=== PATIENT | male | born 1965 | race Caucasian/White ===

== ENCOUNTER 2022-01-12 22:22 | Outpatient (REF) | payer BC, SELFPAY ==
[2022-01-12 22:29] LABS: ALT 57 U/L (16-63); AST 28 U/L (15-37); Albumin 4.3 g/dL (3.4-5.0); Alkaline Phosphatase 78 U/L (46-116); Anion Gap 8.3 mmol/L (3-11); BUN 12 mg/dL (7-18); Bilirubin, Total 0.8 mg/dL (0.2-1.0); CO2 28.7 mmol/L (21.0-32.0); Calcium 9.4 mg/dL (8.5-10.1); Calculated LDL 142 mg/dL (<100); Chloride 103 mmol/L (98-107); Cholesterol 227 mg/dL (<200); Glucose 86 mg/dL (74-106); HDL Cholesterol 57 mg/dL (40-60); Potassium 4.9 mmol/L (3.5-5.1); Sodium 140 mmol/L (136-145); Total Protein 7.6 g/dL (6.4-8.2); Triglyceride 144 mg/dL (<150)
== END 2022-01-12 22:23 | disposition home or self-care (01) ==
LOC: LBN 22:22
PROVIDERS: PCP Family Medicine; Visit Provider Family Medicine
DX: I10 Essential (primary) hypertension (principal); M54.32 Sciatica, left side; Z11.59 Encounter for screening for other viral diseases; Z12.5 Encounter for screening for malignant neoplasm of prostate; Z13.6 Encounter for screening for cardiovascular disorders
CPT/HCPCS: 80053; 80061; 84153

== ENCOUNTER 2022-03-22 00:47 | Outpatient (CLI) | payer BC, SELFPAY ==
--- NOTE | 2022-03-22 07:00 | DI.MRI_ITS ---
Exam(s) MR LUMBAR SPINE WO EXAM: MR LUMBAR SPINE WO CLINICAL HISTORY: severe recurrent sciatica on left X 4 months,m54.32. TECHNIQUE: Multiplanar multisequence MRI of the Lumbar spine was performed. COMPARISON: No exams were available for comparison FINDINGS: There are no plain films the lumbar spine available at the time of this MRI interpretation. Therefor e 5 lumbar vertebrae are presumed. Conus medullaris is at normal level. There is no evidence of conus mass nor subjacent clumping of in trathecal nerve roots to suggest arachnoiditis. The distal thecal sac appears unremarkable.There is no evidence of Tarlov intrasacral cysts nor other significant findings within the sacral canal Bones:There are no fractures nor ominous osseous lesions in the lumbar vertebral bodies and visualize d sacrum. With respect to the individual levels... T12-L1: Unremarkable L1-2: Normal disc height and signal. No disc herniation nor central canal stenosis.No foraminal steno sis L2-3: Normal disc height. Symmetrical mild annular bulging but no dominant disc herniation. Central canal dimensions are lower normal.No foraminal stenosis.No facet arthropathy. L3-4: Normal disc height. Symmetrical annular bulging. Mild central spinal canal stenosis. No dist inct focal disc herniation.No foraminal stenosis.No facet arthropathy. L4-5: Minimal decreased disc height. Mild Modic type 1 sub endplate marrow edema changes in the post erior aspect of lower L4. There is broad annular bulging with moderate-severe central spinal canal s tenosis.. No significant foraminal stenosis. There are mild degenerative changes in the facet joint and moderate degenerative changes the left facet joint. L5-S1: Normal height and signal. Appears sacralized no disc herniation. No central canal stenosis. No foraminal stenosis. No facet arthropathy. Soft tissues: paraspinal soft tissues appear unremarkable. IMPRESSION: 1. Findings as discussed individually above. Most significant finding is moderate-severe central spi nal canal stenosis at L4-5 level, this related to short AP dimensions of the pedicles, relatively sym metrical annular bulging and some degenerative change in both facet joints. No obvious listhesis at this level. 2. L5 segment is probably partially sacralized. This puts additional stress on the L4-5 level. DATA REPOSITORY:
== END 2022-03-22 01:07 ==
PROVIDERS: PCP Family Medicine; Visit Provider Family Medicine
DX: M54.32 Sciatica, left side (principal); M48.061 Spinal stenosis, lumbar region without neurogenic claudication
CPT/HCPCS: 72148

== ENCOUNTER 2023-01-10 08:07 | Day surgery (SDC) | payer BC, SELFPAY ==
--- NOTE | 2023-01-09 21:32 | HPE_ITS ---
Assessment and Plan Assessment and plan (1) Screening for colon cancer: Status: Acute Assessment and plan: 57yo male with intermittent rectal bleeding and abdominal discomfort. He has not had previous colorectal cancer screening. Will proceed to colonoscopy.screening colonoscopy. Complications include but are not limited to bleeding, pain, perforation, missed small lesion/polyp, sore throat, aspiration and adverse reaction to the medications. Questions were answered to their satisfaction and they wished to proceed. History of Present Illness History of Present Illness Chief Complaint: Screening for colorectal cancer; Abdominal discomfort Narrative: This is a 57yo male who presents for his first colorectal cancer screening.He denies a family history of colon cancer. He denies any changes in bowel habits including? black tarry stools, diarrhea or constipation.? He states he believes he have's hemorrhoids because he has noted some intermittent bleeding after bowel movements, when he wipes.? Also of note he describes having occasional abdominal pain that is achy in nature.? He states this most commonly is bothersome after sitting for long periods of time.? This does not bother him when he is physically active.?He denies nausea/vomiting, or periods of diarhhea or constipation. He denies noting any correlation with things that he is eating.? He states that this has been a chronic issue for him, greater than 10 years.? He does smoke 1ppd. PFSH All Active Problems Sciatica of left side (Acute) Personal history of nicotine dependence (Acute) 12/2021-1 ppd, about 35 pk yr Blind left eye (Acute) remote accident, glass eye Hyperlipidemia (Acute) Spinal stenosis at L4-L5 level (Acute) 03/2022- MR Abdominal discomfort (Acute) Screening for colon cancer (Acute) Surgical History (Updated 01/10/23 @ 08:46 by Irma Loyd) Hx of eye surgery 20+ years ago; accident resulted in blindness/prosthetic Family History (Updated 12/04/21 @ 11:16 by Ayse Rivera) Mother , 80 No problems noted. Father , 62 No problems noted. Social History (Updated 07/19/22 @ 12:12 by Keyonna Alcala) Smoking/Tobacco Use Status: Current every day Tobacco Type: cigarettes Tobacco: How many years used: 35 Quit status: considering quitting Second Hand Exposure: Yes Smoking risk assessment performed?: Yes Alcohol Intake: former Drug use: Daily Substance use type: marijuana Caregiver/Support person: No Household members: significant other Housing: house Communication Needs: None Do you need help understanding health information?: Often Pets and animals: Yes Pets and animals: cat(s) Sexually active: Yes Do you think of yourself as: straight/heterosexual Current gender identity: male What is your relationship status?: living with partner How often do you talk on the phone with friends or family?: once per week How often do you get together with friends or relatives?: once per week How often do you attend confucianist or mosque services?: decline to answer Do you belong to any clubs or organized social groups?: no Panel score (0-1 are the most socially isolated patients): 1 What type of physical activity do you participate in: none Melissa/Anabaptist: No preference Special melissa needs: No Seatbelt use: sometimes Helmet use: No Drive intox or ride w/intox local combination truck driver: No Do you feel safe at home: Yes Do you feel safe in your relationship?: Yes Meds Allergies and Home Medications Allergies Allergy/AdvReac Type Severity Reaction Status Date / Time No Known Allergies Allergy Verified 01/10/23 08:46 Home Medications Medication Instructions Recorded Confirmed Type gabapentin 300 mg capsule 300 mg PO PRN PRN 01/10/23 01/10/23 History Exam Const General: cooperative, healthy appearing, comfortable and no acute distress Nutritional Appearance: average body habitus Orientation: alert, awake and oriented x3 Eyes Other: left glass eye Resp Effort & Inspection: normal respiratory effort, able to speak in complete sentences, no grunting and not labored Auscultation: diminished lung sounds Cardio Rate: tachycardic Rhythm: regular rhythm Heart Sounds: S1 normal and S2 normal GI Palpation: soft, not firm, no guarding, not rigid and nontender Psych Appearance: grossly normal Mental Status: mental status grossly normal Thought Process: normal Thought Content: normal
--- NOTE | 2023-01-09 21:37 | W.COLOREPORT ---
Date of service: 01/10/23 Time of Service: 11:37 Colonoscopy Report Date of procedure: 01/10/23 Pre-op diagnosis general: Rectal bleeding; Abdominal discomfort; Colorectal CA screening Post-op diagnosis procedure note: other (Enlarged prostate; prolapsing internal hemorrhoids; colorectal polyps) Procedure: 1. Colonoscopy 2. Polypectomy Surgeon: Iftikhar Perkins Anesthesia Type: MAC Estimated blood loss (mL): 5 Pathology: other (1. polyps @80cm (x2); 2. polyp @ 55cm 3. polyp @ 35cm) Complications: None Disposition: same day Indications: Screening for colorectal cancer; h/o intermittent rectal bleeding; abdominal discomfort Prep: Miralax/Dulcolax Retraction Time: >15 min Findings: enlarged, smooth contoured prostate; Prolapsing internal hemorrhoids; polyps x2 @ 80cm; polyp @ 55cm; polyp @ 35cm Procedure Description: After informed consent was obtained, the patient was taken to the procedure room and placed in a left decubitus position. Monitors were applied and a time out was done. The patient's name, date of , procedure, allergies to medications, and metal in their body were reviewed. The patient was then sedated. Once sedated and comfortable, a digital rectal exam was done. External exam demonstreated prolapsing internal hemorrhoids. Internal exam revealed normal sphincter tone, and an enlarged, smooth prostate, and no gross blood. The colonoscope was then introduced and advanced to the cecum under direct visualization with mild difficulty. The ileocecal valve and appendiceal orifice were visualized. The prep was adequate.?The scope was then slowly withdrawn over 15 minutes in a circumferential manner to the rectum. In doing so, polyps were encountered.? Two polyps at 80cm were taken by cold froceps. One polyp @ 55cm was taken by cold forceps. One polyp @ 35cm was taken by cold snare. There? was no diverticulosis noted. The mucosa is pink and healthy.? In the rectum, the scope was retroflexed, and moderate internal hemorrhoids were noted.? The scope was straightened and withdrawn from the anus. The patient tolerated the procedure well, and there were no immediate complications.? The patient was taken to the Day Surgery Unit recovery?area in good condition. Follow up: await pathology; 3-5 years
--- NOTE | 2023-01-09 21:40 | W.PM.DSUDISC ---
Date of service: 01/10/23 Time of Service: 11:44 Discharge Plan Disposition Patient Disposition: Home Condition: Stable Discharge Details Reason For Visit: Colonoscopy Attending Provider: Iftikhar Perkins Primary Care Provider: Nicholas Goldsmith Home Meds and New Rx's Prescriptions: No Action gabapentin 300 mg capsule 300 mg PO PRN PRN Patient Comments: 01/10/23 Only takes for sciatica Discharge Instructions Instructions: Colonoscopy (DC), Hemorrhoids (DC), Colorectal Polyps (DC), Enlarged Prostate (BPH) (DC), High Fiber Diet (DC) Activity:: Activity as Tolerated Diet:: As Tolerated DS: Diagnosis Discharge Diagnosis (1) Colorectal polyps: Status: Acute Asessment and Plan: Polyps were found on colonoscopy today. --await pathology report --repeat in 3-5 years, based on pathology (2) Hemorrhoids: Status: Acute Asessment and Plan: Prolapsing internal hemorrhoids seen on exam --high fiber diet --stool softeners --increase water intake --see attached information (3) Enlarged prostate on rectal examination: Status: Acute Asessment and Plan: Enlarged prostate noted on digital rectal exam --follow-up with PMD
[2023-01-10 08:15] VITALS: BP 121/87; PULSE 110; RESP 18; TEMP 36.4; O2SAT 99
[2023-01-10] MEDS: Lactated Ringers 1,000 ML 80 ML IV (08:50)
[2023-01-10 10:15] VITALS: BMI 22.1
--- NOTE | 2023-01-10 10:15 | W.ANESPRE ---
General Info Date of Service Date Performed: 01/10/23 Height: 5 ft 7 in Weight: 64.2 kg Body Mass Index (BMI): 22.1 Surgical Procedure: Operation Date: 01/10/23 09:35 Proposed Procedure Side Surgeon p Stas Perkins MD Meds Allergies and Home Medications Allergies Allergy/AdvReac Type Severity Reaction Status Date / Time No Known Allergies Allergy Verified 01/10/23 08:46 Home Medication Medication Instructions Recorded gabapentin 300 mg capsule 300 mg PO PRN PRN 01/10/23 Current Visit Medications: Current Medications Generic Name Dose Route Start Last Admin Trade Name Freq PRN Reason Stop Dose Admin Ringer's Solution 1,000 mls @ 80 mls/hr 01/10/23 06:00 01/10/23 08:50 IV 01/10/23 23:59 80 mls/hr INFUSION ANDREAS Administration IV Miscellaneous Supplies 1 each 01/10/23 06:00 Iv Access IV 01/10/23 23:59 DIRECTED ANDREAS Sodium Chloride 0 ml 01/10/23 06:00 Normal Saline Flush 10 Ml Syr IV 01/10/23 23:59 PRN PRN Sodium Chloride 0 ml 01/10/23 06:00 Normal Saline 10 Ml Vial IJ 01/10/23 23:59 DIRECTED PRN Sterile Water 0 ml 01/10/23 06:00 Water,Injection,Sterile 10 Ml Vial IJ 01/10/23 23:59 DIRECTED PRN PFSH Active Problems Active Problems: Problem Status Onset Code Sciatica of left side M54.32 Personal history of nicotine dependence Z87.891 Blind left eye H54.40 Hyperlipidemia E78.5 Spinal stenosis at L4-L5 level M48.061 Abdominal discomfort R10.9 Screening for colon cancer Z12.11 Medical History Medical History Comments:: Mariosminuna daily; last night Surgical History Surgical History (Updated 01/10/23 @ 08:46 by Irma Loyd) Hx of eye surgery 20+ years ago; accident resulted in blindness/prosthetic Tobacco Smoking/Tobacco Use Status: Current every day Tobacco Type: cigarettes Passive smoking exposure: Yes Second hand exposure: Yes Alcohol Alcohol Intake: former Substance Use Substance use: Daily Substance use type: marijuana Vital Signs and Lab Results Vital Signs Most Recent Vital Signs in EMR: Most Recent Vital Signs Temp Pulse Resp BP Pulse Ox 36.4 C L 110 H 18 121/87 99 01/10/23 08:15 01/10/23 08:15 01/10/23 08:15 01/10/23 08:15 01/10/23 08:15 Lab Results Blood Type / Crossmatch: No Data to Display Complete Blood Count: No Data to Display Complete Metabolic Panel: No Data to Display Liver Function Panel: No Data to Display Coagulation Panel: No Data to Display Cardiac Panel: No Data to Display Arterial Blood Gas: No Data to Display Venous Blood Gas: No Data to Display Pancreas Panel: No Data to Display Thyroid Panel: No Data to Display Infectious Disease: No Data to Display Blood Cultures: No Data to Display Toxicology Panel: No Data to Display Anesthesia Assessment and Plan Anesthesia History Personal History: No History of Anesthesia Complications Family History: No Family History of Anesthesia Complications Exercise Tolerance Exercise Tolerance: Metabolic Equivalents>4 Pertinent Negatives Pertinent Negatives: No Symptoms of GERD, No Major Cardiovascular Symptoms or Complaints and No Major Pulmonary Symptoms or Complaints Cardiac & Pulmonary Exam Cardiac Exam: Normal S1/S2 Heart Sounds Pulmonary Exam: Clear Bilateral Breath Sounds Implantable Cardiac Device Does patient have a Pacemaker or an ICD?: No Airway Exam Known Difficult Airway: No Mallampati Class: 1 Mouth Opening: Narrow (< 3cm) Thyromental Distance: Greater than 3 cm Neck Range of Motion: Full ROM Neck Circumference: Normal Teeth Condition: Removable Dentures/Plates Upper and Removable Dentures/Plates Lower ASA Classification ASA Score: ASA 2 Emergency Case?: No NPO Status NPO Status: NPO Clears >2 hours, Solids >8 hours Anesthesia Plan Resuscitation Status: Full Code Anesthesia Technique: General Anesthesia Airway Planned: Natural Airway Monitors Used: Standard Monitors
--- NOTE | 2023-01-10 10:54 | BOWEL_PTH ---
PATIENT: Wayne Garcia LOC: [facility] U#:[id number] AGE/SX: 57/M ROOM: RE01/10/[address]: Iftikhar Perkins : 1965 BED: DIS: 01/10/2023 SPEC #: [id number] RECD: 01/10/23 12:38 STATUS: SHARA REQ #: [id number] SOLA: 01/10/23 10:[address]: Iftikhar Perkins DEPT: Surgical Specimen RECD BY: Camilla Melchor ENTERED: 01/10/23 12:39 SP TYPE: Bowel OTHR DR: Nicholas Goldsmith, DISPOSAL PLANT OPERATOR Tissues: 1 - BIOPSY BOWEL 2 - BIOPSY BOWEL 3 - BIOPSY BOWEL Procedures: GROSS AND MICRO LEVEL 4 Comments: [id number]
[2023-01-10 11:26] VITALS: BP 117/87; PULSE 78; RESP 16; TEMP 36.6; O2SAT 98
[2023-01-10 11:50] VITALS: BP 124/90; PULSE 81; RESP 16; TEMP 36.6; O2SAT 99
--- NOTE | 2023-01-10 12:32 | W.ANESPOSTOP ---
Postoperative Evaluation Date, Time and Location Date Performed: 01/10/23 Time Performed: 12:32 Patient Location: Day Surgery Unit Vital Signs Most Recent Imported Vital Signs: Most Recent Vital Signs Temp Pulse Resp BP Pulse Ox 36.6 C 81 16 124/90 99 01/10/23 11:50 01/10/23 11:50 01/10/23 11:50 01/10/23 11:50 01/10/23 11:50 Pain Score Most Recent Pain Score: Most Recent Pain Score Pain Level 0 01/10/23 11:50 Assessment Mental Status: Awake (Alert & Oriented to Patient Baseline) Airway and Respiratory Function: Patent airway with normal (patient baseline) respiratory exam Cardiovascular Function: Hemodynamically Stable Hydration Status: Adequately Hydrated Nausea & Vomiting: No Nausea or Vomiting Pain: Pt. Denies Any Pain Peripheral Nerve Block: Patient did not receive a nerve block
== END 2023-01-10 12:15 | disposition home or self-care (01) ==
PROVIDERS: PCP Nurse Practitioner Family; Visit Provider Surgery
PROC: 0DJD8ZZ Inspection of Lower Intestinal Tract, Via Natural or Artificial Opening Endoscopic (ICD-10-PCS; CPT 45378; principal; 2023-01-10 09:30)
DX: K63.5 Polyp of colon (principal); K64.8 Other hemorrhoids; N40.0 Benign prostatic hyperplasia without lower urinary tract symptoms
CPT/HCPCS: 45385; 45380; 88305; J2704

== ENCOUNTER 2024-10-25 10:19 | Outpatient (CLI) | payer BC, SELFPAY ==
--- NOTE | 2024-10-25 10:15 | RT.EKG_ITS ---
APPROVED REPORT Exam: Resting ECG Reason for Exam: Pre Op Patient Location: O HR:87 bpm ECG Measurements Heart Rate 87 AXIS [place] 165 P 69 QRSd 83 QRS 74 QT 325 T 56 QTc 391 Conclusion Sinus rhythm...normal P axis, V-rate 50- 99 Normal Electrocardiogram
== END 2024-10-25 10:20 | disposition home or self-care (01) ==
LOC: DI.CM 10:20
PROVIDERS: PCP Nurse Practitioner Family; Visit Provider Nurse Practitioner Family
DX: Z01.818 Encounter for other preprocedural examination (principal)
CPT/HCPCS: 93010

== ENCOUNTER 2024-10-25 10:33 | Outpatient (CLI) | payer BC, SELFPAY ==
[2024-10-25 12:50] LABS: HCT 44.9 % (40.0-50.0); HGB 15.3 g/dL (13.5-17.5); MCH 30.8 pg (27.0-33.0); MCHC 34.1 % (32.0-36.0); MCV 91 fL (80-95); MPV 9.5 fL (8.0-11.0); Platelet Count 414 10^3/uL (130-400); RBC 4.96 10^6/uL (4.36-5.78); RDW 14.3 % (11.8-14.1); RDW-SD 47.8 fL; WBC 10.78 10^3/uL (4.4-10.8)
[2024-10-25 13:02] LABS: Hemoglobin A1C 5.5 % (<5.7)
[2024-10-25 13:05] LABS: ALT 23 U/L (16-63); AST 17 U/L (15-37); Albumin 4.3 g/dL (3.4-5.0); Alkaline Phosphatase 80 U/L (46-116); Anion Gap 9.2 mmol/L (3-11); BUN 12 mg/dL (7-18); Bilirubin, Total 1.26 mg/dL (0.2-1.0); CO2 26.8 mmol/L (21.0-32.0); CREATININE 1.1 mg/dL (0.70-1.30); Calcium 9.6 mg/dL (8.5-10.1); Calculated LDL 187 mg/dL (<100); Chloride 104 mmol/L (98-107); Cholesterol 270 mg/dL (<200); Glucose 80 mg/dL (74-106); HDL Cholesterol 67 mg/dL (40-60); Sodium 140 mmol/L (136-145); Total Protein 7.9 g/dL (6.4-8.2); Triglyceride 82 mg/dL (<150)
[2024-10-25 13:19] LABS: PTT Activated 25.6 sec (23.6-32.8)
[2024-10-25 17:41] LABS: Bilirubin Negative (Negative); Blood Negative (Negative); Clarity Clear (Clear); Glucose Negative (Negative); Ketones Negative (Negative); Leukocyte Esterase Negative (Negative); Nitrite Negative (Negative); Specific Gravity 1.015 (1.005-1.025); Urobilinogen 0.2 mg/dL (Up to 0.2)
== END 2024-10-25 10:34 | disposition home or self-care (01) ==
LOC: LOS 10:33
PROVIDERS: PCP Nurse Practitioner Family; Visit Provider Nurse Practitioner Family
DX: Z01.818 Encounter for other preprocedural examination (principal); Z13.220 Encounter for screening for lipoid disorders; Z13.1 Encounter for screening for diabetes mellitus
CPT/HCPCS: 36415; 80053; 80061; 85027; 81003; 83036; 85730